=== PATIENT | male | born 1960 | race Two or more races ===

== ENCOUNTER 2017-10-13 12:38 | Emergency (ER) | payer OTHER ==
[2017-10-13] MEDS: DEXAMETHASONE 10 MG/ML 1 ML INJ IM (13:58)
[2017-10-13] MEDS: KETOROLAC 60 MG INJ IM (13:59)
== END 2017-10-13 14:54 | disposition home or self-care (01) ==
LOC: FTE 12:38
DX: M54.41 Lumbago with sciatica, right side (principal); I10 Essential (primary) hypertension
CPT/HCPCS: 96372; 99284-25

== ENCOUNTER 2018-04-28 09:30 | Emergency (ER) | payer OTHER ==
[2018-04-28] MEDS: KETOROLAC 30 MG INJ IM (10:55)
== END 2018-04-28 11:35 | disposition home or self-care (01) ==
LOC: FTE 09:30
DX: M54.41 Lumbago with sciatica, right side (principal); I10 Essential (primary) hypertension
CPT/HCPCS: 96372; 99284-25

== ENCOUNTER 2018-08-05 13:11 | Emergency (ER) | payer OTHER ==
[2018-08-05] MEDS: KETOROLAC 60 MG INJ IM (15:20)
[2018-08-05] MEDS: HYDROCODONE/APAP (10/325) TAB PO (15:20)
== END 2018-08-05 16:11 | disposition home or self-care (01) ==
LOC: FTE 13:11
DX: M54.42 Lumbago with sciatica, left side (principal); G89.29 Other chronic pain; I10 Essential (primary) hypertension
CPT/HCPCS: 96372; 99284-25